=== PATIENT | female | born 1985 | race African-American/Black ===

== ENCOUNTER 2019-03-11 23:04 | Emergency (ER) | payer OTHER, SELFPAY ==
[2019-03-11] MEDS ORDERED: Dexamethasone 4 mg/ml Vial ONE (23:56)
== END 2019-03-12 00:35 | disposition home or self-care (01) ==
LOC: ERS 23:04
DX: S50.862A Insect bite (nonvenomous) of left forearm, initial encounter (principal); L03.114 Cellulitis of left upper limb; K03.81 Cracked tooth; F17.210 Nicotine dependence, cigarettes, uncomplicated; W57.XXXA Bitten or stung by nonvenomous insect and other nonvenomous arthropods, initial encounter
CPT/HCPCS: 99282; J1100